=== PATIENT | female | born 1980 | race American Indian/Alaskan Native ===

== ENCOUNTER 2020-12-17 19:22 | Emergency (ER) | payer MEDICAID ==
[2020-12-17 23:01] LABS: Bilirubin,Urine NEG (Negative); Blood,Urine NEG (Negative); Color,Urine Yellow (Yellow); Mucus,Urine FEW /HPF; Protein,Urine <15 mg/dL mg/dL (Negative); Urobilinogen,Urine < 2.0 mg/dL (<2.0); WBC,Urine < 1.0 /HPF (0.0-6.0)
[2020-12-17 23:12] LABS: HCG Qualitative,Urine Negative (Negative)
[2020-12-18] MEDS ORDERED: KETOROLAC 30 MG/1 ML INJ IM ONE (00:08)
[2020-12-18] MEDS ORDERED: DICYCLOMINE 20 MG/2 ML INJ IM ONE (00:11)
--- NOTE | 2020-12-18 00:29 | Emergency Department Report ---
ED Female HPI - General Chief complaint: Back Pain/Injury Stated complaint: LT LEG PAIN;BACK PAIN Time Seen by Provider: 12/18/20 00:21 Source: patient Mode of arrival: Ambulatory Limitations: No Limitations - History of Present Illness Initial comments: Patient is a 40-year-old -Italian male who presents for vaginal bleeding x1 year. Patient states intermittent cycles since the baby is well over 1 year ago. Patient is now on control not smoking. She advises abdominal pain as 4/10 cramping. Patient denies fall injury or trauma. There is no syncopal episodes or significant blood loss per patient. There is associated headache that is intermittent. Symptoms are relieved by p.o. NSAIDs and rest. Symptoms are exacerbated by activity environmental exposure. MD Complaint: vaginal bleeding Onset/Timin -: year(s) Radiation: LLQ, L flank Severity: moderate Severity scale (0 -10): 4 Quality: cramping Consistency: intermittent Improves with: none Worsens with: none Are you Now?: No (lmp 1 year ago ) Associated Symptoms: vaginal bleeding. denies: abdominal pain, nausea/vomiting, fever/chills, dysuria, hematuria, weakness - Related Data Sexually active: No : 1 Para: 1 A: 0 Home Medications Medication Instructions Recorded Confirmed Last Taken Vit-Fe Fumar-FA [ 1 tab PO QDAY 08/14/19 08/14/19 08/14/19 09:00 Vitamin] Previous Rx's Medication Instructions Recorded Last Taken Type Ferrous Sulfate [Ferrous Sulfate 324 mg PO BID #60 tablet. 08/18/19 Unknown Rx 324 MG] Ibuprofen [Motrin] 600 mg PO Q6H PRN #60 tablet 08/18/19 Unknown Rx oxyCODONE /ACETAMINOPHEN [Percocet 1 tab PO Q6HR PRN #40 tablet 08/18/19 Unknown Rx 5/325] Naproxen 500 mg PO BID PRN #30 tablet 12/18/20 Unknown Rx medroxyPROGESTERone ACETATE 10 mg PO BID #20 tablet 12/18/20 Unknown Rx [Provera] Allergies Allergy/AdvReac Type Severity Reaction Status Date / Time No Known Allergies Allergy Verified 08/14/19 17:20 ED Review of Systems ROS: Stated complaint: LT LEG PAIN;BACK PAIN Other details as noted in HPI Constitutional: denies: chills, fever Eyes: denies: eye pain, eye discharge, vision change ENT: denies: ear pain, throat pain Respiratory: denies: cough, shortness of breath, wheezing Cardiovascular: denies: chest pain, palpitations Endocrine: no symptoms reported Gastrointestinal: abdominal pain (cramping). denies: nausea, vomiting, diarrhea, constipation, hematemesis, melena Genitourinary: denies: urgency, dysuria, frequency, hematuria, discharge Musculoskeletal: back pain. denies: joint swelling, arthralgia, myalgia Skin: denies: rash, lesions Neurological: denies: headache, weakness, numbness, paresthesias, confusion, abnormal gait, vertigo Psychiatric: denies: anxiety, depression Hematological/Lymphatic: denies: easy bleeding, easy bruising ED Past Medical Hx - Past Medical History Previous Medical History?: No Hx Hypertension: No Hx Diabetes: No Hx Deep Vein Thrombosis: No Hx Renal Disease: No Hx Sickle Cell Disease: No Hx Seizures: No Hx Asthma: No Hx COPD: No Hx HIV: No - Social History Smoking Status: Never Smoker - Medications Home Medications: Home Medications Medication Instructions Recorded Confirmed Last Taken Type Vit-Fe Fumar-FA [ 1 tab PO QDAY 08/14/19 08/14/19 08/14/19 09:00 History Vitamin] Ferrous Sulfate [Ferrous Sulfate 324 mg PO BID #60 tablet. 08/18/19 Unknown Rx 324 MG] Ibuprofen [Motrin] 600 mg PO Q6H PRN #60 tablet 08/18/19 Unknown Rx oxyCODONE /ACETAMINOPHEN [Percocet 1 tab PO Q6HR PRN #40 tablet 08/18/19 Unknown Rx 5/325] Naproxen 500 mg PO BID PRN #30 tablet 12/18/20 Unknown Rx medroxyPROGESTERone ACETATE 10 mg PO BID #20 tablet 12/18/20 Unknown Rx [Provera] ED Physical Exam - General Limitations: No Limitations General appearance: alert, in no apparent distress - Head Head exam: Present: atraumatic, normocephalic - Eye Eye exam: Present: normal appearance, PERRL, EOMI Pupils: Present: normal accommodation. Absent: unequal - ENT ENT exam: Present: normal exam, mucous membranes moist, TM's normal bilaterally - Neck Neck exam: Present: normal inspection, full ROM. Absent: tenderness - Respiratory Respiratory exam: Present: normal lung sounds bilaterally, chest wall tenderness. Absent: respiratory distress, wheezes, stridor, prolonged expiratory - Cardiovascular Cardiovascular Exam: Present: regular rate, normal rhythm, normal heart sounds. Absent: systolic murmur, diastolic murmur, rubs, gallop - GI/Abdominal GI/Abdominal exam: Present: soft, normal bowel sounds. Absent: distended, tenderness, guarding, rebound, rigid, bruit, hernia - Rectal Rectal exam: Present: deferred - External exam: Present: normal external exam - Extremities Exam Extremities exam: Present: normal inspection, full ROM, normal capillary refill. Absent: tenderness - Expanded Lower Extremity Exam Left Hip exam: Present: full ROM. Absent: tenderness Knee exam: Present: full ROM. Absent: tenderness, swelling Lower Leg exam: Present: normal inspection, full ROM. Absent: tenderness Neuro vascular tendon exam: Absent: pulse deficit Gait: Positive: observed and normal - Back Exam Back exam: Present: normal inspection, full ROM. Absent: tenderness, CVA tenderness (R), CVA tenderness (L), muscle spasm, paraspinal tenderness, vertebral tenderness - Neurological Exam Neurological exam: Present: alert, oriented X3, CN II-XII intact, normal gait, reflexes normal. Absent: motor sensory deficit - Expanded Neurological Exam Expanded Patient oriented to: Present: person, place, time Speech: Present: fluid speech Motor strength exam: RUE: 5, LUE: 5, RLE: 5, LLE: 5 Best Eye Response (Shayna): (4) open spontaneously Best Motor Response (Shayna): (6) obeys commands Best Verbal Response (Shayna): (5) oriented Shayna Total: 15 - Psychiatric Psychiatric exam: Present: normal affect, normal mood - Skin Skin exam: Present: warm, dry, intact, normal color. Absent: rash ED Course Vital Signs 12/17/20 22:19 Temperature 98.2 F Pulse Rate 84 Respiratory 18 Rate Blood Pressure 150/84 [Right] O2 Sat by Pulse 100 Oximetry ED Medical Decision Making - Lab Data Lab Results 12/17/20 Range/Units 22:33 Urine Color Yellow (Yellow) Urine Turbidity Clear (Clear) Urine pH 5.0 (5.0-7.0) Ur Specific [place] 1.027 (1.003-1.030) Urine Protein <15 mg/dl (Negative) mg/dL Urine Glucose (UA) Neg (Negative) mg/dL Urine Ketones Neg (Negative) mg/dL Urine Blood Neg (Negative) Urine Nitrite Neg (Negative) Urine Bilirubin Neg (Negative) Urine Urobilinogen < 2.0 (<2.0) mg/dL Ur Leukocyte Esterase Neg (Negative) Urine WBC (Auto) < 1.0 (0.0-6.0) /HPF Urine RBC (Auto) 1.0 (0.0-6.0) /HPF U Epithel Cells (Auto) < 1.0 (0-13.0) /HPF Urine Mucus Few /HPF Urine HCG, Qual Negative (Negative) - Medical Decision Making Pain is improved with medications given in ED., There is no numbness, tingling, loss or decrease in bowel or bladder function. Labs are stable plan DC to home with prescriptions, follow-up with [employer]ER in 2 to 3 days. Patient verbalized agreement and understanding discharge plan. Patient DC'd home in stable condition at this time Critical care attestation.: If time is entered above; I have spent that time in minutes in the direct care of this critically ill patient, excluding procedure time. 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
[2020-12-18 02:47] VITALS: BP 114/79
== END 2020-12-18 02:00 | disposition home or self-care (01) ==
LOC: ED 19:22
DX: N94.6 Dysmenorrhea, unspecified (principal); M54.5 Low back pain; Z79.899 Other long term (current) drug therapy
CPT/HCPCS: 81001; 81025; 96372; 99283; J0500; J1885

== ENCOUNTER 2022-03-15 09:00 | Emergency (ER) | payer MEDICAID ==
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
[2022-03-15] MEDS ORDERED: KETOROLAC 10 MG TAB PO ONE (12:50)
[2022-03-15] MEDS ORDERED: CYCLOBENZAPRINE 10 MG TAB PO ONE (12:50)
[2022-03-15] MEDS ORDERED: ACETAMINOPHEN W/CODEINE 300-30 MG TAB PO ONE (12:50)
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
[2022-03-15 14:23] VITALS: BP 136/72
== END 2022-03-15 14:22 | disposition home or self-care (01) ==
LOC: ED 09:00
DX: R51.9 Headache, unspecified (principal); M54.2 Cervicalgia; M25.522 Pain in left elbow; V89.2XXA Person injured in unspecified motor-vehicle accident, traffic, initial encounter; Y93.89 Activity, other specified; Y92.89 Other specified places as the place of occurrence of the external cause; Y99.8 Other external cause status
CPT/HCPCS: 70450; 72125; 99284